=== PATIENT | female | born 1955 | race Caucasian/White ===

== ENCOUNTER 2016-10-24 12:44 | Emergency (ER) | payer OTHER ==
[~2016-10-24] VITALS: Ht 154.9 cm; Wt 61.4 kg
[2016-10-24] MEDS ORDERED: NAPR250T2 PO (12:53)
[2016-10-24] MEDS ORDERED: KETOROLAC TROMETHAMINE 60 MG/2 ML VIAL IM ONE (16:30)
[2016-10-24] MEDS ORDERED: METHOCARBAMOL 500 MG TABLET PO ONE (16:30)
[2016-10-24 16:58] VITALS: BP 111/74
== END 2016-10-24 19:12 | disposition home or self-care (01) ==
LOC: EMS 12:48
DX: M25.561 Pain in right knee (principal); M79.89 Other specified soft tissue disorders; E78.00 Pure hypercholesterolemia, unspecified
CPT/HCPCS: 29505; 73562; 96372; 99284; J1885